=== PATIENT | female | born 1990 | race Caucasian/White ===

== ENCOUNTER 2022-07-07 22:20 | Observation (INO) | payer OTHER, SELFPAY ==
[~2022-07-07] VITALS: Ht 149.9 cm; Wt 75.0 kg
[2022-07-07 22:43] VITALS: BP 112/76
[2022-07-07] MEDS ORDERED: METHYLERGONOVINE MALEATE 0.2 MG TAB PO PRN (23:10)
[2022-07-07] MEDS ORDERED: DOCUSATE SODIUM 100MG CAPSULE PO PRN (23:10)
[2022-07-07] MEDS ORDERED: DIBUCAINE 1% OINTMENT 30GM TOP PRN (23:10)
[2022-07-07] MEDS ORDERED: IBUPROFEN 800 MG TAB PO PRN (23:10)
[2022-07-07] MEDS ORDERED: IBUPROFEN 600MG TAB PO PRN (23:10)
[2022-07-07] MEDS ORDERED: ACETAMINOPHEN TAB 650MG DOSE (2X325MG) PO PRN (23:10)
[2022-07-07] MEDS ORDERED: ACETAMINOPHEN 500 MG TAB PO PRN (23:10)
[2022-07-07] MEDS ORDERED: RHOGAM 300MCG (1500IU) INJ IM SCH (23:10)
[2022-07-07] MEDS ORDERED: ANUSOL HC CREAM 30GM TOP PRN (23:10)
[2022-07-07] MEDS ORDERED: MOM 30ML SUSPENSION UDC PO PRN (23:10)
[2022-07-08 00:16] LABS: HEMOGLOBIN 10.1 g/dl (12.0-15.5); MEAN CORPUSCULAR HEMOGLOBIN 28.1 pg (27.0-33.0); MEAN CORPUSCULAR HGB CONC 32.6 g/dl (32.0-36.5); MEAN CORPUSCULAR VOLUME 86.4 fl (80.0-96.0); PLATELET COUNT, AUTOMATED 265 10^3/uL (150-450); RED BLOOD COUNT 3.59 10^6/uL (4.00-5.40); WHITE BLOOD COUNT 16.6 10^3/uL (4.0-10.0)
[2022-07-08] MEDS ORDERED: PRENATAL VITAMINS CHEWABLE TABLET PO SCH (09:00)
[2022-07-09] MEDS ORDERED: MEASLES,MUMPS,RUBELLA VACCINE INJ (MMR-II) SC.IMMUN ONE (09:00)
== END 2022-07-08 02:10 | disposition home or self-care (01) ==
LOC: INTOOBSV 22:20 → M LDI 22:20
PROVIDERS: ADMIT Obstetrics & Gynecology; ATTEND Obstetrics & Gynecology
DX: Z39.0 Encounter for care and examination of mother immediately after delivery (principal); F17.200 Nicotine dependence, unspecified, uncomplicated